=== PATIENT | female | born 1985 | race American Indian/Alaskan Native ===

== ENCOUNTER 2017-02-12 12:23 | Outpatient (CLI) | payer MEDICAID ==
[2017-02-12 13:44] VITALS: BP 121/73
[2017-02-12] MEDS ORDERED: LACTATED RINGERS 500 ML IV ONE (14:06)
[2017-02-12 14:58] LABS: Bilirubin,Urine NEG (Negative); Blood,Urine NEG (Negative); Ketones,Urine NEG (Negative); Leukocyte Esterase,Urine NEG (Negative); Nitrite,Urine NEG (Negative); Urobilinogen,Urine < 2.0 mg/dL (<2.0)
[2017-02-12] MEDS ORDERED: NORCO 5/325 PO PRN (15:21)
[2017-02-12 15:37] LABS: Urine Drugs of Abuse Note Disclamer
== END 2017-02-12 17:10 | disposition left against medical advice (07) ==
LOC: TRG 12:23
PROVIDERS: ATTEND Obstetrics & Gynecology
DX: O26.893 Other specified pregnancy related conditions, third trimester (principal); M79.661 Pain in right lower leg; M79.662 Pain in left lower leg; M79.89 Other specified soft tissue disorders; O99.333 Smoking (tobacco) complicating pregnancy, third trimester; O47.03 False labor before 37 completed weeks of gestation, third trimester; Z3A.34 34 weeks gestation of pregnancy
CPT/HCPCS: 59025; 80307; 81001; 93970

== ENCOUNTER 2018-07-09 14:03 | Emergency (ER) | payer MEDICAID ==
[2018-07-09] MEDS ORDERED: TYLENOL PO ONE (15:00)
[2018-07-09 16:52] LABS: Bacteria,Urine 1+ /HPF (Negative); Bilirubin,Urine NEG (Negative); Blood,Urine NEG (Negative); Color,Urine Straw (Yellow); Protein,Urine <15 mg/dL mg/dL (Negative); RBC,Urine < 1.0 /HPF (0.0-6.0); Urobilinogen,Urine < 2.0 mg/dL (<2.0)
[2018-07-09 16:58] VITALS: BP 130/77
--- NOTE | 2018-07-09 17:18 | Emergency Department Report ---
ED Back Pain/Injury HPI - General Chief Complaint: Abdominal Pain Stated Complaint: LABOR TYPE PAIN Time Seen by Provider: 07/09/18 14:53 Source: EMS Limitations: No Limitations - History of Present Illness Initial Comments: Patient is a 33-year-old female who is 18 weeks with twins who claims some back pain. Patient states that the pain is in the left lower back and sometimes radiates down to her left leg and feels like her left leg as cramping. Patient states this is occurring off and on for the last month but was worse today. Patient states that today the pain was a 10 out of 10 in severity and she feels as though her leg and back lockup where she can't move. The patient denies any bowel or bladder dysfunction. She denies any fevers [facility] dysuria vaginal bleeding. - Related Data Previous Rx's Medication Instructions Recorded Last Taken Type HYDROcodone/APAP 7.5-325 [[place] 1 each PO Q8HR PRN #10 tablet 03/25/16 Unknown Rx 7.5-325 mg TAB] Ondansetron [Zofran TAB] 4 mg PO Q8HR PRN #14 tablet 03/25/16 Unknown Rx Cyclobenzaprine HCl [Flexeril 5 MG 5 mg PO TID #12 tab 07/09/18 Unknown Rx TAB] Allergies Allergy/AdvReac Type Severity Reaction Status Date / Time No Known Allergies Allergy Unverified 03/25/16 03:09 ED Review of Systems ROS: Stated complaint: LABOR TYPE PAIN Other details as noted in HPI Comment: All other systems reviewed and negative ED Back Pain Physical Exam - Exam General: Vital signs noted. No distress. Alert and acting appropriately. Back/Abdomen: Yes Perilumbar Tenderness, No Abdominal Tenderness, No Perithoracic Tenderness, No Sacroiliac Tenderness, No Flank Tenderness, No Straight Leg Raise Pain Neuro: Yes Normal Sensation, Yes Normal DTR's, Yes Normal Gait, No Motor Weakness ED Course Vital Signs 07/09/18 07/09/18 07/09/18 14:43 14:49 15:00 Temperature 98.4 F Pulse Rate 97 H 86 Respiratory 16 Rate Blood Pressure 131/79 Blood Pressure 135/85 [Left] O2 Sat by Pulse 100 100 Oximetry 07/09/18 07/09/18 07/09/18 15:15 15:30 15:45 Temperature Pulse Rate 86 88 85 Respiratory 15 22 12 Rate Blood Pressure 144/88 131/85 133/70 Blood Pressure [Left] O2 Sat by Pulse 100 100 Oximetry 07/09/18 07/09/18 07/09/18 16:00 16:15 16:30 Temperature Pulse Rate 78 88 86 Respiratory 24 19 21 Rate Blood Pressure 133/86 138/82 132/77 Blood Pressure [Left] O2 Sat by Pulse 100 100 Oximetry 07/09/18 16:45 Temperature Pulse Rate 85 Respiratory 17 Rate Blood Pressure 130/77 Blood Pressure [Left] O2 Sat by Pulse Oximetry ED Medical Decision Making - Lab Data Lab Results 07/09/18 Range/Units 16:20 Urine Color Straw (Yellow) Urine Turbidity Slightly-cloudy (Clear) Urine pH 8.0 H (5.0-7.0) Ur Specific [place] 1.005 (1.003-1.030) Urine Protein <15 mg/dl (Negative) mg/dL Urine Glucose (UA) Neg (Negative) mg/dL Urine Ketones Neg (Negative) mg/dL Urine Blood Neg (Negative) Urine Nitrite Neg (Negative) Urine Bilirubin Neg (Negative) Urine Urobilinogen < 2.0 (<2.0) mg/dL Ur Leukocyte Esterase Tr (Negative) Urine WBC (Auto) 1.0 (0.0-6.0) /HPF Urine RBC (Auto) < 1.0 (0.0-6.0) /HPF U Epithel Cells (Auto) 6.0 (0-13.0) /HPF Urine Bacteria (Auto) 1+ (Negative) /HPF - Medical Decision Making Patient's urinalysis is negative for abnormality. Patient to be treated for muscular skeletal back pain be discharged home. Critical care attestation.: If time is entered above; I have spent that time in minutes in the direct care of this critically ill patient, excluding procedure time. ED Disposition Clinical Impression: Back pain with sciatica Disposition: - TO HOME OR SELFCARE Is pt being admited?: No Does the pt Need Aspirin: No Condition: Stable Instructions: Lumbar Radiculopathy (ED) Referrals: RICHARD ART MD [Primary Care Provider] - 3-5 Days Time of Disposition: 17:18
== END 2018-07-09 17:24 | disposition home or self-care (01) ==
LOC: ED 14:03
DX: O26.892 Other specified pregnancy related conditions, second trimester (principal); M54.40 Lumbago with sciatica, unspecified side; Z3A.18 18 weeks gestation of pregnancy
CPT/HCPCS: 81001; 99283